=== PATIENT | female | born 1940 | race Caucasian/White ===

== ENCOUNTER 2023-11-19 08:42 | Emergency (ER) | payer OTHER, SELFPAY ==
[2023-11-19 08:47] VITALS: BP 168/68
--- NOTE | 2023-11-19 09:14 | ED.GENMED ---
History of Present Illness
<Bubba Ku PA-C - Last Filed: 11/19/23 13:16>
General
Chief Complaint: Dizziness
Source: patient
Exam Limitations: none
Time Seen by Provider: 11/19/23 08:58
Travel History
Have you had any contact with someone who has COVID-19?: No
Do you have any symptoms of coronavirus? Fever > 100 degrees, chills, cough, shortness of breath, sore throat, loss of taste or smell, muscle aches, or headache?: No
History of Present Illness
History of Present Illness:
83-year-old female with history of asthma recent bout of bronchitis presents with 3 days worth of dizziness. She describes a spinning sensation when she changes positions. She always feels like she is leaning to the left. She denies any double
vision blurry vision or loss of vision. She denies neck pain but does note a slight headache. She denies chest pain or unilateral numbness or weakness. She has a history of vertigo before but it never has lasted this long. No other complaints at
this time
Past History
<ELYSSA Amaya Last Filed: 11/19/23 13:16>
Past History
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
ED Past Surgical History: Cholecystectomy, Gynecological (Hysterectomy) and Orthopedic
Social History
Tobacco: Former smoker
Alcohol: None
Drug: None
Personal:
Living: with family
Employment: Employed
Family History
Family History: Hypertension
Phy Exam
<ELYSSA Amaya Last Filed: 11/19/23 13:16>
Physical Exam
Physical Exam:
General: Well-appearing female no acute respiratory distress
HEENT: Normocephalic atraumatic TMs normal pupils equal round reactive to light horizontal nystagmus noted on extraocular motion testing
Heart: Regular rate and rhythm no murmurs
Lungs: Clear no wheeze or rales
Neurologic exam: Alert and oriented x 3 no facial asymmetry. No ataxia noted on exam finger-nose [id number] intact no drift. [place]-Hallpike maneuver seems to be worse when she turns her head to the left.
Extremities: No cyanosis
Skin: Warm no rash
Course
<Bubba Ku PA-C - Last Filed: 11/19/23 13:16>
Orders/Labs/Results
Orders:
Orders
11/19/23 08:51
Electrocardiogram (*1) Urgent
Reason for Study: Chest Pain
EKG- Treatment ONCE
11/19/23 09:13
CT Head W/o Iv Contrast Urgent
Comment:
Reason For Exam: dizziness
PT Consult [Pt Eval And Treat] Urgent
Treatment: vestibular eval
Activity Level: Ambulate
11/19/23 09:16
Complete Blood Count/With Diff Urgent
Comprehensive Metabolic Panel Urgent
11/19/23 09:25
Lorazepam [Ativan] 0.5 mg IV NOW STA
11/19/23 10:25
0.9% Sodium Chloride 1000 ml [Nss] 1,000 ml IV BOLUS
Abnormal Lab Results
11/19/23
09:16
RDW 14.6 H %
(11.5-14.5)
Absolute Neuts (auto) 6.7 H 10^3/uL
(1.4-6.5)
Absolute Monos (auto) 0.7 H 10^3/uL
(0.1-0.6)
Lymphocytes % 19.6 L %
(20.5-51.1)
Chloride 110 H mmol/L
(98-107)
BUN 23 H mg/dl
(7-17)
Creatinine 1.2 H mg/dL
(0.6-1.0)
Glucose 104 H mg/dl
(70-99)
11/19/23 09:16
11/19/23 09:16
Vital Signs
Initial and Last Documented VS:
Initial Vital Signs
Temp Pulse Resp BP Pulse Ox
97.8 F 70 20 168/68 96
11/19/23 08:47 11/19/23 08:47 11/19/23 08:47 11/19/23 08:47 11/19/23 08:47
Last Documented Vital Signs
Temp Pulse Resp BP Pulse Ox
97.8 F 70 22 144/64 94
11/19/23 08:47 11/19/23 13:01 11/19/23 13:01 11/19/23 13:01 11/19/23 13:01
<Shaun Meehan, DO - Last Filed: 11/19/23 09:28>
Orders/Labs/Results
Orders:
Orders
11/19/23 08:51
Electrocardiogram (*1) Urgent
Reason for Study: Chest Pain
EKG- Treatment ONCE
11/19/23 09:13
CT Head W/o Iv Contrast Urgent
Comment:
Reason For Exam: dizziness
PT Consult [Pt Eval And Treat] Urgent
Treatment: vestibular eval
Activity Level: Ambulate
11/19/23 09:16
Complete Blood Count/With Diff Urgent
Comprehensive Metabolic Panel Urgent
11/19/23 09:25
Lorazepam [Ativan] 0.5 mg IV NOW STA
11/19/23 10:25
0.9% Sodium Chloride 1000 ml [Nss] 1,000 ml IV BOLUS
Abnormal Lab Results
11/19/23
09:16
RDW 14.6 H %
(11.5-14.5)
Absolute Neuts (auto) 6.7 H 10^3/uL
(1.4-6.5)
Absolute Monos (auto) 0.7 H 10^3/uL
(0.1-0.6)
Lymphocytes % 19.6 L %
(20.5-51.1)
Chloride 110 H mmol/L
(98-107)
BUN 23 H mg/dl
(7-17)
Creatinine 1.2 H mg/dL
(0.6-1.0)
Glucose 104 H mg/dl
(70-99)
11/19/23 09:16
11/19/23 09:16
Vital Signs
Initial and Last Documented VS:
Initial Vital Signs
Temp Pulse Resp BP Pulse Ox
97.8 F 70 20 168/68 96
11/19/23 08:47 11/19/23 08:47 11/19/23 08:47 11/19/23 08:47 11/19/23 08:47
Last Documented Vital Signs
Temp Pulse Resp BP Pulse Ox
97.8 F 70 22 144/64 94
11/19/23 08:47 11/19/23 13:01 11/19/23 13:01 11/19/23 13:01 11/19/23 13:01
<Bubba Ku PA-C - Last Filed: 11/19/23 13:16>
MDM/Problems Addressed
Differential Diagnosis Includes:
Dizziness. Consider peripheral versus central vertigo. Exam more consistent with peripheral cause with Taxol more suggestive dizziness on the left. Will check labs. EKG shows sinus arrhythmia. CT of the head pending. Labs pending. Consult
physical therapy.
<Bubba Ku PA-C - Last Filed: 11/19/23 13:16>
*Critical Care Note
Total Time (30-74mins, 75-104mins- exclusive of procedures): Not Applicable
<Bubba Ku PA-C - Last Filed: 11/19/23 13:16>
Update Note
Update Note:
Dizziness seems to be fatigable and made worse with position change. CT of the head negative. [place]-Hallpike more suggestive of symptoms on the left. Discussed with emergency room attending who saw the patient and spoke with the family son who is a
neurologist out of state. PT eval consistent with vertigo. She is feeling better after evaluation. Will continue with meclizine. Stable for discharge with outpatient vestibular therapy
ED Attending Note
<Bubba Ku PA-C - Last Filed: 11/19/23 13:16>
-
Portions of this chart may have been created with voice recognition software.� Occasional wrong word or��sound alike� substitutions may have occurred due to the inherent limitations of voice recognition software.
<Shaun Meehan DO - Last Filed: 11/19/23 09:28>
ED Attending Note
Patient seen and examined by attending physician: Yes
I performed the substantive portion of visit, reviewed & personally made and approve the management plan that is documented in note by myself or LEVY.: Yes
I performed a history and physical exam of patient and discussed management with resident, I reviewed resident's note and agree with documented findings and plan of care.: Yes
ED Attending Note:
I evaluated the patient at bedside. There is questionable nystagmus to the left. I suspect this is physiologic however. She has a nonfocal neurologic examination. However as patient is 83 years old and reports that she leans towards the left at
times, will obtain CT imaging for further evaluation.
Discharge Plan
Departure
Patient Disposition: Home (Routine Discharge)
Date of Disposition: 11/19/23
Time of Disposition: 13:12
Patient with high blood pressure during this ER visit?: No
Discharge Problem:
Vertigo
Instructions: Vertigo (a Type of Dizziness) (DC)
Prescriptions:
New
meclizine 25 mg tablet
25 mg PO TID PRN (Reason: dizziness) Qty: 10 0RF
No Action
Atorvastatin Mg
40 mg PO DAILY
Doxazosin Mesylate
1 tab PO QPM
Multivitamin
1 tab PO DAILY
Amlodipine Besylate
5 mg PO QPM Qty: 0 0RF
Rx Instructions:
hold systolic blood pressure <130
aspirin 325 MG tablet,delayed release (DR/EC)
81 mg PO DAILY
budesonide-formoterol [Symbicort] 1 PUFF HFA aerosol inhaler
2 puff inhalation R BID
Referrals:
Paul Soni MD [Family Provider] -
Activity Restrictions/Additional Instructions:
Rest. Stay hydrated. Use meclizine if needed for dizziness. Follow-up with outpatient physical therapy for vestibular rehab
Interventions
Interventions:
*Risk Screen - Suicide Last Done: 11/19/23 08:47
*General Assessment Last Done: 11/19/23 08:47
*Neglect/Abuse Screening Last Done: 11/19/23 08:47
ED- Fall Risk Assessment Last Done: 11/19/23 09:00
ED- Neurological Assessment Last Done: 11/19/23 09:03
ED- Cardiac Assessment Last Done: 11/19/23 09:00
ED Swallowing Screen Last Done: 11/19/23 12:57
Discharge Date and Time
Print Language: CYMRO
[2023-11-19 09:31] VITALS: BP 141/71
[2023-11-19] MEDS: ATIVAN 0.5 MG IV (09:51)
[2023-11-19 09:54] LABS: % Basophils 0.3 % (0-2); % Eosinophils 1.6 % (0-6); % Immature Granulocytes 0.3 % (0-0.5); % Lymphocytes 19.6 % (20.5-51.1); % Monocytes 7.5 % (1.7-9.3); % Neutrophils 70.7 % (42.2-75.2); Absolute Eosinophils 0.2 10^3/uL (0-0.7); Absolute Lymphocytes 1.9 10^3/uL (1.2-3.4); Absolute Monocytes 0.7 10^3/uL (0.1-0.6); Absolute Neutrophils 6.7 10^3/uL (1.4-6.5); Hematocrit 41.4 % (37.0-47.0); Hemoglobin 14.1 g/dL (12.0-16.0); Mean Corp Hgb Conc. 34.1 g/dL (33.0-37.0); Mean Corpuscular Hgb 29.2 pg (27.0-31.0); Mean Corpuscular Volume 85.7 fL (81.0-99.0); Mean Platelet Volume 8.3 fL (7.4-10.4); Nucleated Red Blood Cells % 0 %; Platelet Count 246 10^3/uL (130-400); Red Blood Cell Count 4.83 10^6/uL (4.20-5.40); Red Cell Dist. Width 14.6 % (11.5-14.5); White Blood Cell Count 9.5 10^3/uL (4.8-10.8)
[2023-11-19 10:00] VITALS: BP 145/57
[2023-11-19 10:05] LABS: ALT (SGPT) 21 U/L (0-35); AST (SGOT) 32 U/L (14-36); Albumin 4.1 g/dl (3.5-5.0); Alkaline Phosphatase 87 U/L (38-126); Blood Urea Nitrogen 23 mg/dl (7-17); Calcium 9.4 mg/dl (8.4-10.2); Carbon Dioxide 25 mmol/L (22-30); Chloride 110 mmol/L (98-107); Estimated Creatinine Clearance 38 ml/min; Glucose 104 mg/dl (70-99); Potassium 4.3 mmol/L (3.5-5.1); Sodium 140 mmol/L (135-145); Total Bilirubin 0.6 mg/dl (0.2-1.3); Total Protein 6.6 g/dl (6.3-8.2); eGFR 45.48
[2023-11-19 10:56] VITALS: BP 159/67
[2023-11-19 11:00] VITALS: BP 156/57
[2023-11-19] MEDS: NSS 1000 IV (11:32)
[2023-11-19 13:01] VITALS: BP 144/64
== END 2023-11-19 13:34 | disposition home or self-care (01) ==
LOC: EMR 08:42
PROVIDERS: Physician Assistant; EMERGENCY PHYSICIAN Emergency Medicine; FAMILY PHYSICIAN Internal Medicine
DX: R42 Dizziness and giddiness (principal); Z87.891 Personal history of nicotine dependence; J44.89 Other specified chronic obstructive pulmonary disease
CPT/HCPCS: 99285; 96374; 96361; 70450; 80053; 85025; 93005

== ENCOUNTER → 2023-12-13 11:32 | Outpatient (REF) | payer OTHER, SELFPAY ==
[2023-12-13 16:21] LABS: % Basophils 0.5 % (0-2); % Immature Granulocytes 0.2 % (0-0.5); % Lymphocytes 21.9 % (20.5-51.1); % Monocytes 7.1 % (1.7-9.3); % Neutrophils 69.3 % (42.2-75.2); Absolute Basophils 0.1 10^3/uL (0-0.2); Absolute Eosinophils 0.1 10^3/uL (0-0.7); Absolute Lymphocytes 2.1 10^3/uL (1.2-3.4); Absolute Monocytes 0.7 10^3/uL (0.1-0.6); Absolute Neutrophils 6.6 10^3/uL (1.4-6.5); Hematocrit 40.5 % (37.0-47.0); Hemoglobin 13.4 g/dL (12.0-16.0); Mean Corp Hgb Conc. 33.1 g/dL (33.0-37.0); Mean Corpuscular Hgb 29.5 pg (27.0-31.0); Mean Platelet Volume 8.8 fL (7.4-10.4); Nucleated Red Blood Cells % 0 %; Platelet Count 245 10^3/uL (130-400); Red Blood Cell Count 4.55 10^6/uL (4.20-5.40); Red Cell Dist. Width 14.3 % (11.5-14.5); White Blood Cell Count 9.6 10^3/uL (4.8-10.8)
[2023-12-13 16:28] LABS: ALT (SGPT) 16 U/L (0-35); AST (SGOT) 24 U/L (14-36); Albumin 4.2 g/dl (3.5-5.0); Alkaline Phosphatase 82 U/L (38-126); Blood Urea Nitrogen 26 mg/dl (7-17); Calcium 9.7 mg/dl (8.4-10.2); Carbon Dioxide 21 mmol/L (22-30); Chloride 111 mmol/L (98-107); Glucose 101 mg/dl (70-99); HDL Cholesterol 71 mg/dl; LDL Cholesterol, Calculated 31 mg/dl; Potassium 4.5 mmol/L (3.5-5.1); Sodium 141 mmol/L (135-145); Total Bilirubin 0.5 mg/dl (0.2-1.3); Total Cholesterol 120 mg/dl (50-199); Total Protein 6.7 g/dl (6.3-8.2); Triglyceride 90 mg/dl (10-149); Very Low Density Lipoprotein 18 mg/dl (0-30)
[2023-12-13 16:57] LABS: TSH 1.93 uIU/ml (0.47-4.68)
[2023-12-14 08:49] LABS: Glycohemoglobin (HgbA1c) 5.4 % (4.0-5.6)
== END ==
LOC: HWLAB 11:32
PROVIDERS: ATTENDING PHYSICIAN Internal Medicine
DX: R73.9 Hyperglycemia, unspecified (principal); E78.2 Mixed hyperlipidemia; I10 Essential (primary) hypertension; R53.83 Other fatigue; E55.9 Vitamin D deficiency, unspecified
CPT/HCPCS: 36415; 80053; 80061; 82306; 83036; 84443; 85025

== ENCOUNTER → 2023-12-22 10:56 | Outpatient (REF) | payer OTHER, SELFPAY ==
[2023-12-22 16:14] LABS: Hematocrit 43.3 % (37.0-47.0); Hemoglobin 14.1 g/dL (12.0-16.0)
[2023-12-22 16:20] LABS: Albumin 4.5 g/dl (3.5-5.0); Blood Urea Nitrogen 26 mg/dl (7-17); Calcium 9.6 mg/dl (8.4-10.2); Carbon Dioxide 26 mmol/L (22-30); Chloride 107 mmol/L (98-107); Erythrocyte Sed Rate 14 mm/hour (0-20); Glucose 97 mg/dl (70-99); Phosphorus 4.4 mg/dl (2.5-4.5); Potassium 4.7 mmol/L (3.5-5.1); Sodium 142 mmol/L (135-145); eGFR 41.31
[2023-12-22 16:34] LABS: Microalbumin, Random Urine 0.7 mg/dl (0.6-1.7); Microalbumin/creatinine Ratio 9.1 mg/g
[2023-12-23 10:17] LABS: Intact PTH 57.5 pg/ml (13.6-85.8)
== END ==
LOC: HWLAB 10:56
PROVIDERS: ATTENDING PHYSICIAN Specialist; FAMILY PHYSICIAN Internal Medicine; REFERRING PHYSICIAN Otolaryngology
DX: I12.9 Hypertensive chronic kidney disease with stage 1 through stage 4 chronic kidney disease, or unspecified chronic kidney disease (principal); I95.9 Hypotension, unspecified; E78.2 Mixed hyperlipidemia; I10 Essential (primary) hypertension; H90.3 Sensorineural hearing loss, bilateral
CPT/HCPCS: 36415; 80069; 82043; 82570; 83970; 85014; 85018; 85652

== ENCOUNTER → 2024-02-21 12:05 | Outpatient (REF) | payer OTHER, SELFPAY | LOC: MRI 12:05 | PROVIDERS: ATTENDING PHYSICIAN Otolaryngology; FAMILY PHYSICIAN Internal Medicine | DX: R42 Dizziness and giddiness (principal) | CPT/HCPCS: 70553; A9575 ==

== ENCOUNTER → 2024-04-10 10:21 | Outpatient (REF) | payer OTHER, SELFPAY ==
[2024-04-10 12:26] LABS: % Basophils 0.4 % (0-2); % Eosinophils 1.6 % (0-6); % Immature Granulocytes 0.3 % (0-0.5); % Lymphocytes 22.6 % (20.5-51.1); % Monocytes 6.7 % (1.7-9.3); % Neutrophils 68.4 % (42.2-75.2); Absolute Eosinophils 0.2 10^3/uL (0-0.7); Absolute Lymphocytes 2.4 10^3/uL (1.2-3.4); Absolute Monocytes 0.7 10^3/uL (0.1-0.6); Absolute Neutrophils 7.3 10^3/uL (1.4-6.5); Hematocrit 42.5 % (37.0-47.0); Hemoglobin 14.7 g/dL (12.0-16.0); Mean Corp Hgb Conc. 34.6 g/dL (33.0-37.0); Mean Corpuscular Hgb 30.1 pg (27.0-31.0); Mean Corpuscular Volume 86.9 fL (81.0-99.0); Mean Platelet Volume 8.8 fL (7.4-10.4); Nucleated Red Blood Cells % 0 %; Platelet Count 303 10^3/uL (130-400); Red Blood Cell Count 4.89 10^6/uL (4.20-5.40); Red Cell Dist. Width 13.4 % (11.5-14.5); White Blood Cell Count 10.6 10^3/uL (4.8-10.8)
[2024-04-10 12:36] LABS: ALT (SGPT) 21 U/L (0-35); AST (SGOT) 27 U/L (14-36); Albumin 4.5 g/dl (3.5-5.0); Alkaline Phosphatase 89 U/L (38-126); Blood Urea Nitrogen 37 mg/dl (7-17); Calcium 9.6 mg/dl (8.4-10.2); Carbon Dioxide 25 mmol/L (22-30); Chloride 102 mmol/L (98-107); Glucose 107 mg/dl (70-99); HDL Cholesterol 74 mg/dl; LDL Cholesterol, Calculated 30 mg/dl; Potassium 3.6 mmol/L (3.5-5.1); Sodium 143 mmol/L (135-145); Total Bilirubin 0.6 mg/dl (0.2-1.3); Total Cholesterol 139 mg/dl (50-199); Total Protein 7.2 g/dl (6.3-8.2); Triglyceride 178 mg/dl (10-149); Very Low Density Lipoprotein 35 mg/dl (0-30); eGFR 34.58
[2024-04-10 12:52] LABS: Vitamin D, 25-OH*** 44.2 ng/mL (30-80)
[2024-04-10 13:02] LABS: Glycohemoglobin (HgbA1c) 5.6 % (4.0-5.6)
[2024-04-10 13:06] LABS: TSH 1.87 uIU/ml (0.47-4.68)
== END ==
LOC: HWLAB 10:21
PROVIDERS: ATTENDING PHYSICIAN Internal Medicine
DX: I10 Essential (primary) hypertension (principal); R73.9 Hyperglycemia, unspecified; E78.2 Mixed hyperlipidemia; R53.83 Other fatigue; E55.9 Vitamin D deficiency, unspecified
CPT/HCPCS: 36415; 80053; 80061; 82306; 83036; 84443; 85025

== ENCOUNTER → 2024-04-18 12:00 | Outpatient (REF) | payer OTHER, SELFPAY | LOC: HWWDC 12:00 | PROVIDERS: ATTENDING PHYSICIAN Internal Medicine | DX: Z12.31 Encounter for screening mammogram for malignant neoplasm of breast (principal) | CPT/HCPCS: 77063; 77067 ==

== ENCOUNTER → 2024-11-05 09:14 | Outpatient (REF) | payer OTHER, SELFPAY ==
[2024-11-05 11:26] LABS: % Basophils 0.5 % (0-2); % Eosinophils 1.4 % (0-6); % Immature Granulocytes 0.2 % (0-0.5); % Lymphocytes 27.1 % (20.5-51.1); % Monocytes 7.8 % (1.7-9.3); Absolute Eosinophils 0.1 10^3/uL (0-0.7); Absolute Lymphocytes 2.3 10^3/uL (1.2-3.4); Absolute Monocytes 0.7 10^3/uL (0.1-0.6); Absolute Neutrophils 5.3 10^3/uL (1.4-6.5); Hematocrit 41.7 % (37.0-47.0); Mean Corp Hgb Conc. 33.6 g/dL (33.0-37.0); Mean Corpuscular Hgb 29.4 pg (27.0-31.0); Mean Corpuscular Volume 87.6 fL (81.0-99.0); Mean Platelet Volume 8.8 fL (7.4-10.4); Nucleated Red Blood Cells % 0 %; Platelet Count 267 10^3/uL (130-400); Red Blood Cell Count 4.76 10^6/uL (4.20-5.40); Red Cell Dist. Width 14.3 % (11.5-14.5); White Blood Cell Count 8.4 10^3/uL (4.8-10.8)
[2024-11-05 11:27] LABS: ALT (SGPT) 19 U/L (0-35); AST (SGOT) 26 U/L (14-36); Albumin 4.5 g/dl (3.5-5.0); Alkaline Phosphatase 72 U/L (38-126); Blood Urea Nitrogen 36 mg/dl (7-17); Calcium 9.5 mg/dl (8.4-10.2); Carbon Dioxide 27 mmol/L (22-30); Chloride 106 mmol/L (98-107); Glucose 107 mg/dl (70-99); HDL Cholesterol 71 mg/dl; LDL Cholesterol, Calculated 44 mg/dl; Sodium 143 mmol/L (135-145); Total Bilirubin 0.8 mg/dl (0.2-1.3); Total Cholesterol 144 mg/dl (50-199); Total Protein 6.9 g/dl (6.3-8.2); Triglyceride 148 mg/dl (10-149); Very Low Density Lipoprotein 29 mg/dl (0-30); eGFR 37.56
[2024-11-05 11:42] LABS: Vitamin D, 25-OH*** 44.5 ng/mL (30-80)
[2024-11-05 11:46] LABS: NT-proBNP 541 pg/ml
[2024-11-05 11:55] LABS: TSH 2.33 uIU/ml (0.47-4.68)
[2024-11-05 13:41] LABS: Glycohemoglobin (HgbA1c) 5.7 % (4.0-5.6)
== END ==
LOC: HWLAB 09:14
PROVIDERS: ATTENDING PHYSICIAN Internal Medicine
DX: R73.9 Hyperglycemia, unspecified (principal); E78.2 Mixed hyperlipidemia; I10 Essential (primary) hypertension; E55.9 Vitamin D deficiency, unspecified; I50.31 Acute diastolic (congestive) heart failure
CPT/HCPCS: 36415; 80053; 80061; 82306; 83036; 83880; 84443; 85025

== ENCOUNTER → 2025-04-01 09:40 | Outpatient (REF) | payer OTHER, SELFPAY ==
[2025-04-01 12:19] LABS: Urine Character Slightly Cloudy (Clear)
[2025-04-01 12:21] LABS: Hematocrit 41.6 % (37.0-47.0); Hemoglobin 14.1 g/dL (12.0-16.0); Mean Corp Hgb Conc. 33.9 g/dL (33.0-37.0); Mean Corpuscular Volume 89.5 fL (81.0-99.0); Nucleated Red Blood Cells % 0 %; Platelet Count 292 10^3/uL (130-400); Red Cell Dist. Width 14.5 % (11.5-14.5)
[2025-04-01 12:25] LABS: Urine Squamous Cell 0-2 /LPF (Few)
[2025-04-01 12:26] LABS: Urine White Cell 30-40 /HPF (0-5)
[2025-04-01 13:14] LABS: ALT (SGPT) 17 U/L (0-35); AST (SGOT) 24 U/L (14-36); Albumin 4.5 g/dl (3.5-5.0); Alkaline Phosphatase 77 U/L (38-126); Calcium 9.5 mg/dl (8.4-10.2); Carbon Dioxide 25 mmol/L (22-30); Chloride 103 mmol/L (98-107); Glucose 105 mg/dl (70-99); HDL Cholesterol 81 mg/dl; LDL Cholesterol, Calculated 31 mg/dl; Potassium 3.8 mmol/L (3.5-5.1); Sodium 138 mmol/L (135-145); Total Protein 7.2 g/dl (6.3-8.2); Very Low Density Lipoprotein 24 mg/dl (0-30); eGFR 24.33
[2025-04-01 13:23] LABS: Blood Urea Nitrogen 46 mg/dl (7-17)
[2025-04-01 13:29] LABS: Vitamin D, 25-OH*** 44.9 ng/mL (30-80)
[2025-04-01 13:35] LABS: Microalb - Urine Creatinine 104.800 mg/dl
[2025-04-01 13:40] LABS: Microalbumin, Random Urine 1.4 mg/dl (0.6-1.7)
[2025-04-01 13:42] LABS: TSH 1.58 uIU/ml (0.47-4.68)
[2025-04-01 13:54] LABS: Glycohemoglobin (HgbA1c) 5.6 % (4.0-5.6)
== END ==
LOC: HWLAB 09:40
PROVIDERS: ATTENDING PHYSICIAN Specialist; FAMILY PHYSICIAN Internal Medicine
DX: E78.5 Hyperlipidemia, unspecified (principal); R73.9 Hyperglycemia, unspecified; R53.83 Other fatigue; E55.9 Vitamin D deficiency, unspecified; I50.31 Acute diastolic (congestive) heart failure; E79.0 Hyperuricemia without signs of inflammatory arthritis and tophaceous disease; I10 Essential (primary) hypertension; E78.2 Mixed hyperlipidemia; N18.4 Chronic kidney disease, stage 4 (severe)
CPT/HCPCS: 36415; 80053; 80061; 81003; 81015; 82043; 82306; 82570; 83036; 83880; 83970; 84100; 84156; 84443; 85025

== ENCOUNTER → 2025-04-22 10:15 | Outpatient (REF) | payer OTHER, SELFPAY ==
[2025-04-22 13:06] LABS: Albumin 4.5 g/dl (3.5-5.0); Blood Urea Nitrogen 34 mg/dl (7-17); Calcium 9.4 mg/dl (8.4-10.2); Carbon Dioxide 24 mmol/L (22-30); Chloride 108 mmol/L (98-107); Glucose 103 mg/dl (70-99); Potassium 4.5 mmol/L (3.5-5.1); Sodium 142 mmol/L (135-145); eGFR 37.33
== END ==
LOC: HWLAB 10:15
PROVIDERS: ATTENDING PHYSICIAN Specialist; FAMILY PHYSICIAN Internal Medicine
DX: I12.9 Hypertensive chronic kidney disease with stage 1 through stage 4 chronic kidney disease, or unspecified chronic kidney disease (principal); I95.9 Hypotension, unspecified; E79.0 Hyperuricemia without signs of inflammatory arthritis and tophaceous disease; I10 Essential (primary) hypertension; E78.2 Mixed hyperlipidemia
CPT/HCPCS: 36415; 80069; 83970

== ENCOUNTER → 2025-05-13 10:58 | Outpatient (REF) | payer OTHER, SELFPAY | LOC: HWWDC 10:58 | PROVIDERS: ATTENDING PHYSICIAN Internal Medicine | DX: Z12.31 Encounter for screening mammogram for malignant neoplasm of breast (principal) | CPT/HCPCS: 77063; 77067 ==